=== PATIENT | male | born 1995 | race Caucasian/White ===

== ENCOUNTER 2018-12-24 13:18 | Inpatient (IN) | payer MEDICAID ==
[~2018-12-24] VITALS: Ht 167.6 cm; Wt 68.0 kg
[~2018-12-24 13:18] MED LIST: HYDROcodone/APAP 7.5/325 MG 1 TAB PO SCH
[2018-12-24 13:26] VITALS: BP 115/68
--- NOTE | 2018-12-24 13:34 | NUR ---
Patient ambulated to bed 7. RN evaluating patient at bedside.
--- NOTE | 2018-12-24 13:51 | NUR ---
Dr. Dorsey evaluating patient at bedside.
--- NOTE | 2018-12-24 13:54 | NUR ---
APT C/O CHST PAIN, NON-PRODUCTIVE COUGH, AND SOB X 3 DAYS. DENIES PAIN RADIATING TO OTHER PLACE. DENIES INJURIES. DENIES N/V/D; SKIN IS PINK/WARM/DRY; AAOX4 WITH EVEN AND STEADY GAIT; WHEEZING AUSCULTATED ALL LUNG FIEDS; HR EVEN AND REGULAR; PT DENIES ANY FEVER AT THIS TIME; PATIENT STATES PAIN OF 10/10 AT THIS TIME; VSS; PATIENT POSITIONED FOR COMFORT; HOB ELEVATED; BEDRAILS UP X1; BED DOWN. ER MD MADE AWARE OF PT STATUS.
[2018-12-24] MEDS ORDERED: methylPREDNISolone SS 125 MG/2 ML VIAL IVP ONE (13:55)
[2018-12-24] MEDS ORDERED: ALBUTEROL SULFATE/IPRATROPIU 3 ML SOL IH ONE ×2 (13:55→14:55)
[2018-12-24] MEDS ORDERED: NACL 0.9% 1,000 ML IV ONE (13:55)
[2018-12-24] MEDS ORDERED: MAG SULF 2000 MG/WATER PREMIX 50 ML IV ONE (13:55)
--- NOTE | 2018-12-24 14:04 | NUR ---
Breathing treatment administered at bedside by respiratory therapist.
--- NOTE | 2018-12-24 14:06 | NUR ---
Dr. Dorsey re-evaluating patient at bedside.
[2018-12-24] MEDS ORDERED: PRON INH (15:03)
--- NOTE | 2018-12-24 15:17 | NUR ---
Tertiary breathing treatment administered at bedside by respiratory therapist.
[2018-12-24] MEDS ORDERED: HYDROcodone/APAP 7.5/325 MG 1 TAB PO PRN (15:40)
[2018-12-24] MEDS ORDERED: ACETAMINOPHEN 325 MG TAB PO PRN (15:40)
[2018-12-24] MEDS ORDERED: DOCUSATE SODIUM 100 MG GELCAP PO PRN (15:40)
[2018-12-24 15:55] LABS: HEMATOCRIT 43.7 % (36-52); HEMOGLOBIN 14.6 g/dL (12.0-18.0); MEAN CORPUSCULAR HEMOGLOBIN 29 pg (27-31); MEAN CORPUSCULAR HGB CONC 33 g/dL (33-37); MEAN CORPUSCULAR VOLUME 87.6 fL (80-94); PLATELET COUNT (AUTO) 223 K/uL (140-450); RED BLOOD CELL COUNT(AUTO) 4.99 MIL/uL (4.20-6.10); RED CELL DISTRIBUTION WIDTH 12.8 % (11.6-13.7)
[2018-12-24] MEDS ORDERED: ALBUTEROL SULFATE/IPRATROPIU 3 ML SOL IH PRN ×2 (15:55→21:00)
[2018-12-24 15:58] LABS: ANION GAP 11.2 (8-16); CARBON DIOXIDE 29.7 mmol/L (21-32); CREATININE 0.8 mg/dL (0.7-1.3); POTASSIUM 3.9 mmol/L (3.5-5.1)
[2018-12-24 16:00] VITALS: BP 132/60
--- NOTE | 2018-12-24 16:00 | NUR ---
RECEIVED PT FROM ER NURSE VIA TRAMAINE, WITH GIRLFRIEND ON THE BEDSIDE, IV LINE ON THE RT AC G. 20 ON SALINE LOCK, PT IS A0X4, AMBULATORY, WITH O2 AT 2L VIA NC IN PLACE, PT DENIES PAIN AND NO SIGN OF DISTRESS NOTED. WILL MONITOR PT.
--- NOTE | 2018-12-24 16:00 | NUR ---
Patient will be admitted to care of chest pain. Admited to telemetry. Will go to room 119A. Belongings list completed. Report to TONYA Cottrell.
[2018-12-24 16:09] LABS: EOSINOPHILS % (MANUAL) 24 % (0-4); LYMPHOCYTES % (MANUAL) 26 % (20-46); MONOCYTES % (MANUAL) 5 % (5-12)
[2018-12-24 16:10] LABS: BASOPHILS % (MANUAL) 0 % (0-2)
--- NOTE | 2018-12-24 16:10 | NUR ---
MRSA SWAB DONE TO PT NOW AND DR. RAMIREZ IS ASSESSING THE PT.
[2018-12-24 16:13] LABS: ALBUMIN 3.2 g/dL (3.4-5.0); TOTAL BILIRUBIN 0.3 mg/dL (0.0-1.0)
[2018-12-24 16:44] LABS: CHOL/HDL RATIO 2.2 (1-4.5); FREE T4 (FREE THYROXINE) 1.13 ng/dL (0.76-1.46); MAGNESIUM 2.4 mg/dL (1.8-2.4); PHOSPHORUS 3.1 mg/dL (2.5-4.9); THYROID STIMULATING HORMONE 0.86 uIU/mL (0.34-3.74)
--- NOTE | 2018-12-24 17:30 | NUR ---
PT DENIES PAIN NOW WITH GIRLFRIEND ON BEDSIDE.
[2018-12-24] MEDS ORDERED: AZITHROMYCIN 500 MG in DEXTROSE 5% 250 ML IV SCH (18:00)
[2018-12-24] MEDS: NACL 0.9% 1,000 ML IV SCH (18:03)
--- NOTE | 2018-12-24 18:03 | NUR ---
PT WAS STARTED ON IVF OF NS AT 60ML/HR.
--- NOTE | 2018-12-24 18:11 | NUR ---
PT WAS GIVEN IV ANTIBIOTIC VIA PIGGYBACK, WILL MONITOR PT.
[2018-12-24] MEDS ORDERED: ALBUTEROL SULFATE/IPRATROPIU 3 ML SOL IH SCH (19:00)
--- NOTE | 2018-12-24 19:10 | NUR ---
ENDORSED PT TO FLOORHAND NURSE FOR CONTINUITY OF CARE.
--- NOTE | 2018-12-24 19:11 | NUR ---
Received endorsement from AM shift RN; patient A/Ox4, able to make needs known, Latvian speaking, ambulatory. Introduced self, updated board. No SOB or distress noted, on O2 2LPM via N/C. IV site on right antecubital ,20 gauge, running IVF at 60mL/hr. Skin intact. Bed in the lowest position, call light within reach. Initial assessment done. Will continue to monitor.
[2018-12-24] MEDS: ALBUTEROL SULFATE/IPRATROPIU 3 ML SOL IH SCH (19:30)
[2018-12-24 20:00] VITALS: BP 120/92
--- NOTE | 2018-12-24 20:15 | NUR ---
Vitals taken, no distress noted.
--- NOTE | 2018-12-24 21:30 | NUR ---
Due meds given, tolerated well.
[2018-12-24] MEDS: MORPHINE SULFATE 2 MG/ML SYR IVP PRN (23:04)
[2018-12-24] MEDS: HYDROcodone/APAP 7.5/325 MG 1 TAB PO SCH (23:51)
[2018-12-25] VITALS: BP 115/78
--- NOTE | 2018-12-25 00:10 | NUR ---
Vitals taken; patient asleep on left lateral side, visible chest rise and fall noted.
--- NOTE | 2018-12-25 02:30 | NUR ---
Checks made; patient resting comfortably.
[2018-12-25] MEDS: MORPHINE SULFATE 2 MG/ML SYR IVP PRN ×3 (03:27→20:11)
[2018-12-25 04:00] VITALS: BP 120/81
--- NOTE | 2018-12-25 04:45 | NUR ---
Vitals taken, no distress noted.
[2018-12-25] MEDS: HYDROcodone/APAP 7.5/325 MG 1 TAB PO SCH ×3 (05:14→17:14)
[2018-12-25] MEDS ORDERED: PIPERACILLIN/TAZOBACTAM 3.375 GM in DEXTROSE 5% 50 ML IV SCH ×2 (06:00→07:08)
--- NOTE | 2018-12-25 06:05 | NUR ---
Patients vitals stable; all due meds given, will be endorsed to AM shift RN for continuity of care.
[2018-12-25 06:07] LABS: HEPATITIS A ANTIBODY IGM Negative (Negative); HEPATITIS B CORE AB TOTAL Negative (Negative); HEPATITIS B SURFACE ANTIBODY Non Reactive (.); HEPATITIS B SURFACE ANTIGEN Negative (Negative)
[2018-12-25 06:48] LABS: ANION GAP 15.6 (8-16); CARBON DIOXIDE 24.6 mmol/L (21-32); CREATININE 0.9 mg/dL (0.7-1.3); POTASSIUM 4.2 mmol/L (3.5-5.1)
[2018-12-25 06:50] LABS: MAGNESIUM 2.1 mg/dL (1.8-2.4); PHOSPHORUS 4.4 mg/dL (2.5-4.9)
--- NOTE | 2018-12-25 07:05 | NUR ---
RECEIVED PT FROM CANOE BUILDER NURSEMEENU, PT IS AWAKE AND SIDE RAILS ARE UP AND CALL LIGHT WITHIN REACH, IV LINE ON THE RT AC G. 20 WITH NS INFUSING AT 60ML/HR, INTACT, ON O2 2L NC , PT DENIES PAIN AND WILL CONTINUE TO MONITOR PT.
[2018-12-25 07:10] LABS: BASOPHILS % (AUTO) 0.1 % (0.0-2.0); EOSINOPHILS % (AUTO) 0.1 % (0.0-4.0); HEMATOCRIT 45.4 % (36-52); HEMOGLOBIN 15.3 g/dL (12.0-18.0); LYMPHOCYTES # (AUTO) 2.8 K/uL (2.0-11.5); LYMPHOCYTES % (AUTO) 22.7 % (20.5-51.1); MEAN CORPUSCULAR HEMOGLOBIN 29 pg (27-31); MEAN CORPUSCULAR HGB CONC 34 g/dL (33-37); MEAN CORPUSCULAR VOLUME 86.6 fL (80-94); MONOCYTES # (AUTO) 0.9 K/uL (0.8-1.0); MONOCYTES % (AUTO) 7.1 % (1.7-9.3); NEUTROPHILS # (AUTO) 8.5 K/uL (1.8-7.7); PLATELET COUNT (AUTO) 283 K/uL (140-450); RED BLOOD CELL COUNT(AUTO) 5.24 MIL/uL (4.20-6.10); RED CELL DISTRIBUTION WIDTH 12.6 % (11.6-13.7); WHITE BLOOD COUNT (AUTO) 12.2 K/uL (4.8-10.8)
[2018-12-25 08:00] VITALS: BP 112/72
[2018-12-25] MEDS: ALBUTEROL SULFATE/IPRATROPIU 3 ML SOL IH SCH ×3 (08:03→20:24)
--- NOTE | 2018-12-25 08:09 | NUR ---
PATIENT HAS BEEN SCREENED AND CATEGORIZED LOW NUTRITION RISK. PATIENT WILL BE SEEN WITHIN 7 DAYS OF ADMISSION. 12/31/[address]
[2018-12-25] MEDS: methylPREDNISolone SS 125 MG/2 ML VIAL IVP SCH ×2 (08:14→20:11)
--- NOTE | 2018-12-25 08:14 | NUR ---
PT IS AWAKE AND EATING HIS BREAKFAST, MEDICATIONS WERE GIVEN VIA IVPB AND IV PUSH, PT TOLERATED IT. WILL MONITOR PT.
[2018-12-25] MEDS: NACL 0.9% 1,000 ML IV SCH (08:16)
[2018-12-25] MEDS: PIPERACILLIN/TAZOBACTAM 3.375 GM in DEXTROSE 5% 50 ML IV SCH ×2 (11:24→17:14)
--- NOTE | 2018-12-25 11:25 | NUR ---
PT IS AWAKE AND V/S CHECKED, ORAL AND IV MEDICATIONS WERE GIVEN AN DPT TOLERATED IT. WILL MONITOR PT.
[2018-12-25 12:00] VITALS: BP 103/68
--- NOTE | 2018-12-25 13:16 | NUR ---
DR. HAJI CALLED BACK AND MADE A TELEPHONE ORDER TO GIVE PT 2GM MGSO4 IVPBX1 DOSE AND KCL 40MEQ PO Q4H X2 DOSES. ACKNOWLEDGE AND WILL CARRY OUT ORDER.
[2018-12-25] MEDS ORDERED: diphenhydrAMINE 50 MG/ML VIAL IVP PRN (13:55)
[2018-12-25 16:00] VITALS: BP 107/53
[2018-12-25] MEDS ORDERED: AZITHROMYCIN 250 MG TAB PO SCH (18:00)
--- NOTE | 2018-12-25 19:15 | NUR ---
ENDORSED PT TO DIRECTOR SAFETY NURSE FOR CONTINUITY OF CARE.
--- NOTE | 2018-12-25 19:20 | NUR ---
RECEIVED BEDSIDE REPORT FROM AM SHIFT TONYA SALAZAR FOR PATIENT'S CONTINUITY OF CARE. PATIENT IS ALERT, AWAKE, ORIENTED X 4, EATING DINNER, VISITOR AT BEDSIDE. IS ON 2L O2 VIA NC. IS ON ARMAMENT REPAIRER. HAS RIGHT AC 20G WITH NS INFUSING AT 60 ML/HR. SKIN IS INTACT. DENIES PAIN AT THIS TIME. EDUCATED PATIENT AND VISITOR REGARDING QUALITY IMPROVEMENT ANALYST ROUTINE, BOTH VERBALIZED UNDERSTANDING. SIDE RAILS ARE UP, BED IS IN LOW POSITION, AND CALL LIGHT IS WITHIN REACH. WILL MONITOR PATIENT THROUGHOUT SHIFT.
[2018-12-25 20:00] VITALS: BP 106/54
--- NOTE | 2018-12-25 20:11 | NUR ---
ADMINISTERED SCHEDULED IV PUSH MEDICATIONS ORDERED. PATIENT C/O OF BEING ANXIOUS, ADMINISTERED IV PUSH MEDICATION ORDERED. WILL CONTINUE TO MONITOR PATIENT. Addendum: 12/25/18 at 2358 by Cholo Estrada RN *CORRECTION PATIENT C/O HEADACHE, AND GEN PAIN 01/26. ADMINISTERED IV PUSH PAIN MEDICATION ORDERED.
--- NOTE | 2018-12-25 20:24 | NUR ---
SATURATION 92% ROOM AIR POST HHN THERAPY PLACED ON SUPPLEMENTAL OXYGEN AT 2LPM VIA NC TO KEEP SATURATION GREATER THAN 92% STRONG NPC DURING THERAPY
--- NOTE | 2018-12-25 22:25 | NUR ---
PATIENT C/O SUDDEN FEELING OF ANXIETY. ADMINISTERED 1G OF IV PUSH ATIVAN, ORDERED. PATIENT TOLERATED IT WELL. WILL CONTINUE TO MONITOR PATIENT.
[2018-12-25] MEDS ORDERED: LORazepam 2 MG/ML VIAL ONE (22:32)
[2018-12-26] VITALS: BP 115/72
[2018-12-26] MEDS: HYDROcodone/APAP 7.5/325 MG 1 TAB PO SCH ×4 (00:05→17:37)
--- NOTE | 2018-12-26 00:05 | NUR ---
PATIENT C/O CHEST PAIN, AND STILL A BIT ANXIOUS. ADMINISTERED SCHEDULED PO PAIN MEDICATION ORDERED. HUNG IV ANTIBIOTICS, AND GIVEN SOME SNACKS. PATIENT TOLERATED THEM WELL. WILL CONTINUE TO MONITOR PATIENT.
[2018-12-26] MEDS: PIPERACILLIN/TAZOBACTAM 3.375 GM in DEXTROSE 5% 50 ML IV SCH ×4 (00:13→17:34)
[2018-12-26] MEDS: MORPHINE SULFATE 2 MG/ML SYR IVP PRN ×5 (00:15→20:11)
[2018-12-26] MEDS: NACL 0.9% 1,000 ML IV SCH ×2 (00:56→17:36)
--- NOTE | 2018-12-26 02:50 | NUR ---
MADE ROUNDS. PATIENT IS LYING DOWN ASLEEP, WITH NO SIGNS OF DISTRESS. WILL CONTINUE TO MONITOR PATIENT.
[2018-12-26 04:00] VITALS: BP 102/64
--- NOTE | 2018-12-26 05:10 | NUR ---
PATIENT C/O PAIN 12/26. VITAL SIGNS CHECKED AND CHARTED. ADMINISTERED IV ANTIBIOTICS, AND IV PAIN MEDICATION. PATIENT TOLERATED IT WELL. PATIENT REFUSED SCHEDULED PO PAIN MEDICATION, STATES "IT DOES NOT WORK". MD AWARE. PATIENT WAS TRANSFERRED TO [facility]. WILL ENDORSE PATIENT TO AM SHIFT RN FOR CONTINUITY OF CARE.
--- NOTE | 2018-12-26 07:30 | NUR ---
RECEIVED REPORT FROM BORING MACHINE SET UP OPERATOR NURSE. PATIENT IS SLEEPING. NO S/S OF RESPIRATORY DISTRESS. PATIENT IS ON ROOM AIR. WILL CONTINUE TO MONITOR.
[2018-12-26 08:00] VITALS: BP 112/73
[2018-12-26] MEDS: ALBUTEROL SULFATE/IPRATROPIU 3 ML SOL IH SCH ×3 (08:28→20:46)
[2018-12-26 08:33] LABS: BASOPHILS % (AUTO) 0.3 % (0.0-2.0); HEMATOCRIT 45.3 % (36-52); HEMOGLOBIN 15.2 g/dL (12.0-18.0); LYMPHOCYTES # (AUTO) 2.6 K/uL (2.0-11.5); LYMPHOCYTES % (AUTO) 17.1 % (20.5-51.1); MEAN CORPUSCULAR HEMOGLOBIN 29 pg (27-31); MEAN CORPUSCULAR HGB CONC 34 g/dL (33-37); MEAN CORPUSCULAR VOLUME 86.7 fL (80-94); MONOCYTES # (AUTO) 0.6 K/uL (0.8-1.0); MONOCYTES % (AUTO) 3.7 % (1.7-9.3); NEUTROPHILS # (AUTO) 11.9 K/uL (1.8-7.7); NEUTROPHILS % (AUTO) 78.9 % (42.2-75.2); PLATELET COUNT (AUTO) 283 K/uL (140-450); RED BLOOD CELL COUNT(AUTO) 5.23 MIL/uL (4.20-6.10); RED CELL DISTRIBUTION WIDTH 12.9 % (11.6-13.7); WHITE BLOOD COUNT (AUTO) 15.1 K/uL (4.8-10.8)
--- NOTE | 2018-12-26 09:15 | NUR ---
ADMINISTERED MORNING MEDICATION. PATIENT IS RESTING IN BED. NO COMPLAINTS. REMOVED TELEMETRY BOX D/T PATIENT TRANSFER TO [facility]. WILL CONTINUE TO MONITOR.
[2018-12-26] MEDS: methylPREDNISolone SS 40 MG/ML VIAL IVP SCH ×2 (09:33→20:26)
[2018-12-26 09:34] LABS: ANION GAP 16.1 (8-16); CREATININE 0.8 mg/dL (0.7-1.3); POTASSIUM 4.1 mmol/L (3.5-5.1)
[2018-12-26 09:41] LABS: MAGNESIUM 2.2 mg/dL (1.8-2.4); PHOSPHORUS 4.5 mg/dL (2.5-4.9)
--- NOTE | 2018-12-26 12:14 | NUR ---
ADMINISTERED PAIN MEDICATION TO PATIENT FOR PAIN 10/10. VITAL SIGNS WERE STABLE PRIOR TO ADMINISTRATION. WILL REASSESS IN ONE HOUR. PATIENT IS AWAKE AND LAYING IN BED.
[2018-12-26] MEDS: LORazepam 2 MG/ML VIAL IM/IVP PRN ×2 (14:42→22:21)
--- NOTE | 2018-12-26 14:45 | NUR ---
PATIENT FEELING ANXIOUS. ATIVAN GIVEN AT THIS TIME. WILL CONTINUE TO MONITOR.
[2018-12-26 16:00] VITALS: BP 101/69
[2018-12-26] MEDS: ONDANSETRON 4 MG/2 ML VIAL IM/IVP PRN (16:39)
--- NOTE | 2018-12-26 16:49 | NUR ---
PATIENT WAS FOUND VOMITING AND COUGHING UP SPUTUM IN THE BASIN AT BEDSIDE. PATIENT STATED HE IS GOING THROUGH WITHDRAWAL AND REQUESTED MORPHINE. ADMINISTERED MORPHINE AND ZOFRAN FOR NAUSEA. PATIENTS VITALS PRIOR TO ADMINISTRATION WERE STABLE, ON ROOM AIR, NO S/S OF RESPIRATORY DISTRESS. PATIENT IS IN BED WITH GIRLFRIEND AT BEDSIDE. WILL REASSESS FOR PAIN IN ONE HOUR AND PRN.
[2018-12-26 17:13] LABS: BARBITURATE, URINE NEGATIVE ng/ml (NEG <=200); BENZODIAZEPINE, URINE NEGATIVE ng/mL (NEG <=200); CANNABINOID, URINE NEGATIVE ng/mL (NEG <=50); COCAINE, URINE NEGATIVE ng/mL (NEG <=300); OPIATE, URINE POSITIVE ng/mL (NEG <=2000); PHENCYCLIDINE SCREEN,URINE NEGATIVE ng/mL (NEG <=25)
[2018-12-26 17:14] LABS: APPEARANCE,URINE CLEAR (CLEAR); BILIRUBIN,URINE NEGATIVE (NEGATIVE); BLOOD, URINE NEGATIVE (NEGATIVE); COLOR,URINE YELLOW (YELLOW); LEUKOCYTE ESTERASE ,URINE NEGATIVE (NEGATIVE); NITRITE, URINE NEGATIVE (NEGATIVE); PH,URINE 7.5 (5.0-9.0); UGLUCOSE NEGATIVE (NEGATIVE)
--- NOTE | 2018-12-26 17:46 | NUR ---
PATIENT IS ASLEEP, ON ROOM AIR. GIRLFRIEND IS AT BEDSIDE. NO COMPLAINTS AT THIS TIME. WILL CONTINUE TO MONITOR.
--- NOTE | 2018-12-26 19:15 | NUR ---
ENDORSED PATIENT TO MUD MILL TENDER NURSE. PATIENT STABLE UPON CHANGE OF SHIFT.
--- NOTE | 2018-12-26 19:30 | NUR ---
RECEIVED BEDSIDE REPORT FROM AM SHIFT TONYA IRIZARRY FOR PATIENT'S CONTINUITY OF CARE. PATIENT IS AWAKE, ALERT, ORIENTED X 4, WITH VISITOR AT BEDSIDE. PATIENT HAS RIGHT AC 2OG INFUSING WITH NS AT 60 ML/HR, CURRENTLY ON ROOM AIR, NO SIGNS OF DISTRESS, PATIENT STATED THAT CHEST PAIN AND HEADACHE IS INCREASING. WILL MONITOR THROUGHOUT SHIFT.
--- NOTE | 2018-12-26 20:25 | NUR ---
PATIENT C/O CHEST PAIN AND HEADACHE. ADMINISTERED IV PUSH PAIN MEDICATION AND SCHEDULED IV PUSH MEDICATION ORDERED. PATIENT TOLERATED THEM WELL. EXPLAINED TO PATIENT SECURITY ATTENDANT ROUTINE, PATIENT AND VISITOR VERBALIZED UNDERSTANDING. WILL CONTINUE TO MONITOR PATIENT.
--- NOTE | 2018-12-26 22:21 | NUR ---
PATIENT C/O INCREASING ANXIETY AND RESTLESSNESS. ADMINISTERED IV PUSH MEDICATION ORDERED FOR ANXIETY. PATIENT TOLERATED IT WELL. WILL CONTINUE TO MONITOR PATIENT.
[2018-12-27] VITALS: BP 109/63
[2018-12-27] MEDS: PIPERACILLIN/TAZOBACTAM 3.375 GM in DEXTROSE 5% 50 ML IV SCH ×3 (01:00→12:47)
[2018-12-27] MEDS ORDERED: HALOPERIDOL 1 MG TAB PO SCH (01:00)
--- NOTE | 2018-12-27 01:15 | NUR ---
PATIENT C/O INCREASED ANXIETY. NOTIFIED MD, NEW ORDER IN PLACE. PO MEDICATION NOT AVAILABLE IN UNIT. HOUSE SUP NOTIFIED AND WILL BRING MEDICATION.
[2018-12-27] MEDS: LORazepam 2 MG/ML VIAL IM/IVP PRN (02:23)
--- NOTE | 2018-12-27 02:23 | NUR ---
PATIENT C/O INCREASING ANXIETY. HALDOL NOT AVAILABLE PER RN SERVICE RIG OPERATOR. ADMINISTERED IV PUSH MEDICATION ORDERED. PATIENT TOLERATED IT WELL. PT INQUIRING WHEN CAN HE GET THE NEXT DOSE. EDUCATED PT RE: MEDICATION, AND REPORTING SIGNS AND SYMPTOMS OF ANY ABNORMALITIES. PT VERBALIZED UNDERSTANDING. WILL CONTINUE TO MONITOR PT.
[2018-12-27] MEDS: MORPHINE SULFATE 2 MG/ML SYR IVP PRN ×2 (04:08→12:29)
--- NOTE | 2018-12-27 04:08 | NUR ---
PATIENT WAS C/O HEADACHE AND GEN PAIN 12/26. ADMINISTERED IV PUSH PAIN MEDICATION ORDERED. PATIENT TOLERATED IT WELL. WILL CONTINUE TO MONITOR PATIENT.
[2018-12-27] MEDS: HYDROcodone/APAP 7.5/325 MG 1 TAB PO SCH ×3 (06:35→12:38)
--- NOTE | 2018-12-27 06:35 | NUR ---
ADMINISTERED SCHEDULED PO AND IV ABX MEDICATIONS ORDERED. PATIENT TOLERATED THEM WELL. WILL ENDORSE PATIENT TO AM SHIFT RN FOR CONTINUITY OF CARE. PATIENT IS LYING DOWN ASLEEP, WITH NO SIGNS OR C/O DISTRESS OR PAIN.
--- NOTE | 2018-12-27 07:20 | NUR ---
RECEIVED REPORT FROM MEDICAL TECHNOLOGIST CHIEF NURSE FOR CONTINUITY OF CARE. PT IN STABLE CONDITION. RESPIRATIONS EVEN AND UNLABORED, ROOM AIR. BED IN LOW POSITION. CALL LIGHT AT BEDSIDE. WILL CONTINUE TO MONITOR.
[2018-12-27] MEDS: ALBUTEROL SULFATE/IPRATROPIU 3 ML SOL IH SCH ×2 (07:57→13:22)
[2018-12-27 08:00] VITALS: BP 96/52
[2018-12-27 08:03] LABS: BASOPHILS % (AUTO) 0.2 % (0.0-2.0); HEMATOCRIT 45.5 % (36-52); HEMOGLOBIN 15.2 g/dL (12.0-18.0); LYMPHOCYTES # (AUTO) 3.5 K/uL (2.0-11.5); LYMPHOCYTES % (AUTO) 22.6 % (20.5-51.1); MEAN CORPUSCULAR HEMOGLOBIN 29 pg (27-31); MEAN CORPUSCULAR HGB CONC 33 g/dL (33-37); MEAN CORPUSCULAR VOLUME 86.8 fL (80-94); MONOCYTES # (AUTO) 0.6 K/uL (0.8-1.0); MONOCYTES % (AUTO) 4.1 % (1.7-9.3); NEUTROPHILS # (AUTO) 11.2 K/uL (1.8-7.7); NEUTROPHILS % (AUTO) 73.1 % (42.2-75.2); PLATELET COUNT (AUTO) 302 K/uL (140-450); RED BLOOD CELL COUNT(AUTO) 5.24 MIL/uL (4.20-6.10); WHITE BLOOD COUNT (AUTO) 15.4 K/uL (4.8-10.8)
--- NOTE | 2018-12-27 09:05 | NUR ---
PT TALKING ON PHONE AT THIS TIME. RESPIRATIONS EVEN AND UNLABORED. BED IN LOW POSITION. CALL LIGHT AT BEDSIDE. WILL CONTINUE TO MONITOR.
[2018-12-27] MEDS: methylPREDNISolone SS 40 MG/ML VIAL IVP SCH (10:31)
[2018-12-27] MEDS: NACL 0.9% 1,000 ML IV SCH (10:32)
--- NOTE | 2018-12-27 11:10 | NUR ---
PT LYING IN BED SLEEPING AT THIS TIME. RESPIRATIONS EVEN AND UNLABORED. BED IN LOW POSITION. CALL LIGHT AT BEDSIDE. WILL CONTINUE TO MONITOR.
[2018-12-27 11:33] LABS: ANION GAP 14.9 (8-16); CARBON DIOXIDE 24.8 mmol/L (21-32); CREATININE 0.9 mg/dL (0.7-1.3); POTASSIUM 3.7 mmol/L (3.5-5.1)
[2018-12-27] MEDS: ONDANSETRON 4 MG/2 ML VIAL IM/IVP PRN (12:36)
--- NOTE | 2018-12-27 13:10 | NUR ---
DR. COUGHLIN AT BEDSIDE INFORMING PT PLAN OF CARE. PT IN STABLE CONDITION.
--- NOTE | 2018-12-27 15:47 | NUR ---
PT SIGNED AMA FORM AT THIS TIME, DR. COUGHLIN AT BEDSIDE.
[2018-12-27] MEDS ORDERED: LEVOFLOXACIN 750 MG/D5W PREMIX 150 ML IV SCH (16:00)
[2018-12-27] MEDS ORDERED: LEVO750T2 PO ×2 (16:01→16:03)
[2018-12-27] MEDS ORDERED: CLIN300C2 PO (16:03)
[2018-12-27] MEDS ORDERED: PRED20TA5 PO (16:03)
--- NOTE | 2018-12-27 16:05 | NUR ---
PT ESCORTED TO LOBBY WITH ALL BELONGINGS IN STABLE CONDITION. GIRLFRIEND WAITING WITH VEHICLE.
[2018-12-27] MEDS ORDERED: CLINDAMYCIN 600 MG in DEXTROSE 5% 50 ML IV SCH (21:00)
== END 2018-12-27 16:05 | disposition left against medical advice (07) | DRG 137 ==
LOC: MED 13:18 → MTU 15:42 → MMU 12-27 07:11
PROVIDERS: ADMIT General Practice; ATTEND General Practice
DX: J69.0 Pneumonitis due to inhalation of food and vomit (principal); E44.1 Mild protein-calorie malnutrition; R65.10 Systemic inflammatory response syndrome (SIRS) of non-infectious origin without acute organ dysfunction; J45.901 Unspecified asthma with (acute) exacerbation; Z68.24 Body mass index [BMI] 24.0-24.9, adult; F19.10 Other psychoactive substance abuse, uncomplicated; F11.10 Opioid abuse, uncomplicated; Z59.0 Homelessness; Z90.49 Acquired absence of other specified parts of digestive tract; Z53.21 Procedure and treatment not carried out due to patient leaving prior to being seen by health care provider
CPT/HCPCS: 36415; 36600; 71045; 71250; 80048; 80053; 80305; 81003; 82150; 82550; 82803; 83036; 83605; 83690; 83735; 83880; 84100; 84439; 84443; 84484; 85025; 85610; 85730; 86704; 86706; 86708; 86709; 86803; 87040; 87081; 87340; 93005; 94640; 96365; 96375; 99285; J0456; J0696; J1200; J2060; J2270; J2405; J2543; J2920; J2930; J3475; J3490; J7030; J7060; J7620; Q0092